=== PATIENT | male | born 1980 | race Caucasian/White ===

== ENCOUNTER 2017-03-31 18:02 | Emergency (ER) | payer BC ==
[~2017-03-31] VITALS: Ht 182.9 cm; Wt 82.3 kg
[2017-03-31 18:13] VITALS: BP 140/79; TEMP 98.3
[2017-03-31 19:09] LABS: BASO # 0.1 (0.0-0.2); BASO % 0.6 % (0.0-2.0); EOS % 0.3 % (0-4.0); GRAN # 11.5 (1.4-6.5); GRAN % 77.1 % (42.2-75.2); HEMATOCRIT 41.2 % (42.0-52.0); HEMOGLOBIN 14.4 g/dl (13.5-18.0); LYMPH # 1.8 (1.2-3.4); MEAN CELL VOLUME 92 fl (80.0-100.0); MEAN CORPUSCULAR HEMOGLOBIN 32 pg (27.0-31.0); MEAN CORPUSCULAR HGB CONC 35 g/dl (33.0-37.0); MEAN PLATELET VOLUME 10.4 fl (7.4-10.4); MONO # 1.4 (0.1-0.6); MONO % 9.7 % (1.7-9.3); PLATELET COUNT 255 K/mm3 (130-400); RED BLOOD COUNT 4.47 M/mm3 (4.20-5.60); REDCELL DISTRIBUTION WIDTH-CV 13.1 % (11.5-14.5); WHITE BLOOD COUNT 14.9 K/mm3 (4.8-10.8)
[2017-03-31 19:17] LABS: PH 5 (5-8); SQUAMOUS EPITHELIAL None Seen /hpf; URINE BACTERIA None Seen /hpf; URINE BILIRUBIN Negative (NEGATIVE); URINE BLOOD Negative (NEGATIVE); URINE GLUCOSE Negative (NEGATIVE); URINE KETONE 1+ (NEGATIVE); URINE RBC 0-2 /hpf; URINE UROBILINOGEN Negative (NEGATIVE); URINE WBC 0-2 /hpf
[2017-03-31 19:18] LABS: URINE APPEARANCE Clear; URINE COLOR Yellow
[2017-03-31 19:19] LABS: ADJUSTED CALCIUM 9.6 mg/dL (8.4-10.2); ALBUMIN 4.4 gm/dL (3.5-5.0); BILIRUBIN,TOTAL 1.2 mg/dL (0.0-1.0); C-REACTIVE PROTEIN 5.8 mg/dL (0.0-0.9); CALCIUM 9.9 mg/dL (8.4-10.2); CREATININE, serum 0.91 mg/dL (0.66-1.25); POTASSIUM 3.7 mmol/L (3.4-5.0)
[2017-03-31] MEDS ORDERED: CLEOCIN HCL300 MG PO (23:11)
[2017-03-31] MEDS ORDERED: NORCO 325 MG-51 TAB PO (23:11)
[2017-04-01 00:16] VITALS: PULSE 88
[2017-04-01] MEDS ORDERED: INDOCIN50 MG PO (11:01)
[2017-04-01] MEDS ORDERED: PREDNISONE10 MG PO (12:29)
[2017-04-01] MEDS ORDERED: PERCOCET 325 MG1 TA3 PO (12:29)
== END 2017-04-01 00:25 | disposition home or self-care (01) ==
LOC: COL.ER 18:02
PROVIDERS: Nurse Practitioner
DX: L03.115 Cellulitis of right lower limb (principal); M25.461 Effusion, right knee; F17.200 Nicotine dependence, unspecified, uncomplicated; Z98.890 Other specified postprocedural states
CPT/HCPCS: J0696; J1170; J1885; J2405; J7030

== ENCOUNTER → 2017-03-31 | Outpatient (CLI) | payer BC ==
[~2017-03-31] MED LIST: CLEOCIN HCL300 MG PO; INDOCIN50 MG PO; NORCO 325 MG-51 TAB PO; PERCOCET 325 MG1 TA3 PO; PREDNISONE10 MG PO
[2017-03-31 17:52] LABS: BASO # 0.1 (0.0-0.2); BASO % 0.6 % (0.0-2.0); EOS # 0.1 (0.0-0.7); EOS % 0.5 % (0-4.0); GRAN % 73.8 % (42.2-75.2); HEMATOCRIT 43.2 % (42.0-52.0); HEMOGLOBIN 14.8 g/dl (13.5-18.0); LYMPH # 2.3 (1.2-3.4); LYMPH % 15.1 % (20.0-51.0); MEAN CELL VOLUME 92 fl (80.0-100.0); MEAN CORPUSCULAR HEMOGLOBIN 32 pg (27.0-31.0); MEAN CORPUSCULAR HGB CONC 34 g/dl (33.0-37.0); MEAN PLATELET VOLUME 10.3 fl (7.4-10.4); MONO # 1.4 (0.1-0.6); MONO % 9.5 % (1.7-9.3); PLATELET COUNT 271 K/mm3 (130-400); REDCELL DISTRIBUTION WIDTH-CV 13.1 % (11.5-14.5); WHITE BLOOD COUNT 14.9 K/mm3 (4.8-10.8)
[2017-03-31 18:27] LABS: ADJUSTED CALCIUM 9.7 mg/dL (8.4-10.2); ALBUMIN 4.6 gm/dL (3.5-5.0); BILIRUBIN,TOTAL 1.3 mg/dL (0.0-1.0); CALCIUM 10.2 mg/dL (8.4-10.2); CREATININE, serum 0.92 mg/dL (0.66-1.25); POTASSIUM 4.3 mmol/L (3.4-5.0); TOTAL PROTEIN 8.2 gm/dL (6.4-8.2); URIC ACID 7.3 mg/dL (3.5-8.5)
== END ==
LOC: COL.LAB 17:06
PROVIDERS: Physician Assistant
DX: L03.115 Cellulitis of right lower limb (principal)

== ENCOUNTER 2017-04-01 10:55 | Emergency (ER) | payer BC ==
[~2017-04-01] VITALS: Ht 182.9 cm; Wt 82.3 kg
[~2017-04-01 10:55] MED LIST changes: -INDOCIN50 MG PO; -PERCOCET 325 MG1 TA3 PO; -PREDNISONE10 MG PO
[2017-04-01 10:57] VITALS: TEMP 99.1
[2017-04-01] MEDS ORDERED: INDOCIN50 MG PO (11:01)
[2017-04-01 11:48] LABS: PH 6 (5-8); SQUAMOUS EPITHELIAL None Seen /hpf; URINE APPEARANCE Clear; URINE BACTERIA None Seen /hpf; URINE BILIRUBIN Negative (NEGATIVE); URINE BLOOD Negative (NEGATIVE); URINE COLOR Yellow; URINE GLUCOSE Negative (NEGATIVE); URINE KETONE 1+ (NEGATIVE); URINE RBC 0-2 /hpf; URINE UROBILINOGEN Negative (NEGATIVE); URINE WBC 0-2 /hpf
[2017-04-01 11:49] LABS: BASO # 0.1 (0.0-0.2); BASO % 0.5 % (0.0-2.0); EOS # 0.1 (0.0-0.7); EOS % 0.5 % (0-4.0); HEMATOCRIT 39.4 % (42.0-52.0); HEMOGLOBIN 13.7 g/dl (13.5-18.0); LYMPH # 2.2 (1.2-3.4); LYMPH % 17.3 % (20.0-51.0); MEAN CELL VOLUME 92 fl (80.0-100.0); MEAN CORPUSCULAR HEMOGLOBIN 32 pg (27.0-31.0); MEAN CORPUSCULAR HGB CONC 35 g/dl (33.0-37.0); MEAN PLATELET VOLUME 10.4 fl (7.4-10.4); MONO # 1.5 (0.1-0.6); MONO % 11.3 % (1.7-9.3); PLATELET COUNT 236 K/mm3 (130-400); RED BLOOD COUNT 4.28 M/mm3 (4.20-5.60); WHITE BLOOD COUNT 12.8 K/mm3 (4.8-10.8)
[2017-04-01 11:58] LABS: ADJUSTED CALCIUM 9.2 mg/dL (8.4-10.2); ALBUMIN 4.1 gm/dL (3.5-5.0); C-REACTIVE PROTEIN 7.7 mg/dL (0.0-0.9); CALCIUM 9.3 mg/dL (8.4-10.2); CREATININE, serum 0.82 mg/dL (0.66-1.25); POTASSIUM 4.1 mmol/L (3.4-5.0); TOTAL PROTEIN 7.4 gm/dL (6.4-8.2)
[2017-04-01] MEDS ORDERED: PERCOCET 325 MG1 TA3 PO (12:29)
[2017-04-01] MEDS ORDERED: PREDNISONE10 MG PO (12:29)
[2017-04-01 13:36] VITALS: BP 128/83; PULSE 83
== END 2017-04-01 13:39 | disposition home or self-care (01) ==
LOC: COL.ER 10:55
PROVIDERS: Family Medicine
DX: M25.471 Effusion, right ankle (principal); M25.461 Effusion, right knee
CPT/HCPCS: J1100; J1170; J2550; J7030

== ENCOUNTER → 2017-04-04 | Outpatient (CLI) | payer BC ==
[~2017-04-04] MED LIST changes: +INDOCIN50 MG PO; +PERCOCET 325 MG1 TA3 PO; +PREDNISONE10 MG PO
[2017-04-04 16:40] LABS: SYNOVIAL FL. MONONUCLEAR 37.6 % (0-75); SYNOVIAL FL. POLYMORPHONUCLEAR 62.4 % (0-25); SYNOVIAL FLUID WBC 3782 /mm3 (200-600)
[2017-04-04 16:43] LABS: SYNOVIAL FLUID APPEARANCE HAZY; SYNOVIAL FLUID COLOR YELLOW
[2017-04-05 11:47] LABS: CRYSTAL NUMBER SEEN Many (()); SYN APPEARANCE Cloudy (()); SYN COLOR Yellow (())
== END ==
LOC: ZCOL.LAB 16:13
PROVIDERS: Orthopaedic Surgery
DX: M25.561 Pain in right knee (principal)

== ENCOUNTER 2018-07-02 12:50 | Emergency (ER) | payer BC ==
[~2018-07-02] VITALS: Ht 180.3 cm; Wt 84.1 kg
[2018-07-02 12:55] VITALS: TEMP 97.2
[2018-07-02 13:43] LABS: BASO # 0.1 (0.0-0.2); BASO % 0.5 % (0.0-2.0); EOS # 0.1 (0.0-0.7); EOS % 0.5 % (0-4.0); GRAN # 9.6 (1.4-6.5); GRAN % 72.5 % (42.2-75.2); HEMATOCRIT 42.4 % (42.0-52.0); HEMOGLOBIN 14.8 g/dl (13.5-18.0); LYMPH % 14.8 % (20.0-51.0); MEAN CELL VOLUME 90 fl (80.0-100.0); MEAN CORPUSCULAR HEMOGLOBIN 32 pg (27.0-31.0); MEAN CORPUSCULAR HGB CONC 35 g/dl (33.0-37.0); MEAN PLATELET VOLUME 9.5 fl (7.4-10.4); MONO # 1.5 (0.1-0.6); MONO % 11.2 % (1.7-9.3); PLATELET COUNT 328 K/mm3 (130-400); RED BLOOD COUNT 4.69 M/mm3 (4.20-5.60); REDCELL DISTRIBUTION WIDTH-CV 12.1 % (11.5-14.5)
[2018-07-02 13:55] LABS: ALBUMIN 4.4 gm/dL (3.5-5.0); BILIRUBIN,TOTAL 1.2 mg/dL (0.0-1.0); C-REACTIVE PROTEIN 5.6 mg/dL (0.0-0.9); CALCIUM 9.8 mg/dL (8.4-10.2); CREATININE, serum 0.99 mg/dL (0.66-1.25); POTASSIUM 4.4 mmol/L (3.4-5.0); TOTAL PROTEIN 8.1 gm/dL (6.4-8.2)
[2018-07-02 14:03] LABS: ERYTHROCYTE SEDIMENTATION RATE 61 mm/hr (0-15)
[2018-07-02] MEDS ORDERED: INDOCIN50 MG PO (14:49)
[2018-07-02] MEDS ORDERED: PERCOCET 325 MG1 TA3 PO (14:49)
[2018-07-02 15:14] VITALS: BP 128/79; PULSE 90
== END 2018-07-02 15:14 | disposition home or self-care (01) ==
LOC: COL.ER 12:50
PROVIDERS: Emergency Medicine
DX: M25.561 Pain in right knee (principal)
CPT/HCPCS: J1170; J1885; J2405; J7030